=== PATIENT | female | born 2000 | race Caucasian/White ===

== ENCOUNTER 2019-04-09 11:15 | Inpatient (IN) | payer MEDICAID, OTHER ==
[~2019-04-09] VITALS: Ht 157.5 cm; Wt 69.5 kg
[2019-04-09] VITALS (40 sets, daily range): BP systolic 93–155; BP diastolic 57–90
--- NOTE | 2019-04-09 11:05 | NUR ---
KADIE MARK presented to unit via ambulatory from home, accompanied by significant other, for induction of labor. KADIE MARK weighed, gowned, voided, and to bed. EFHM and TOCO applied, VS taken. KADIE MARK oriented to bed controls, call light, TV, heat, and A/C controls.
[2019-04-09] MEDS ORDERED: D5 LR IV SOLUTION 1,000 ML IV ONE (11:28)
[2019-04-09 12:41] LABS: BASOPHILS % (AUTO) 0 % (0-10); EOSINOPHILS # (AUTO) 0.1 10^3/uL (0.0-0.3); EOSINOPHILS % (AUTO) 1 % (0-10); HEMATOCRIT 31 % (35-52); HEMOGLOBIN 9.4 G/DL (11.5-16.0); LYMPHOCYTES # (AUTO) 1.7 X 10^3 (1.0-4.0); LYMPHOCYTES % (AUTO) 12 % (12-44); MEAN CORPUSCULAR HEMOGLOBIN 22 PG (25-34); MEAN CORPUSCULAR HGB CONC 30 G/DL (32-36); MEAN CORPUSCULAR VOLUME 71 FL (80-99); MEAN PLATELET VOLUME 9.4 FL (7.4-10.4); MONOCYTES % (AUTO) 7 % (0-12); NEUTROPHILS # (AUTO) 10.9 X 10^3 (1.8-7.8); NEUTROPHILS % (AUTO) 80 % (42-75); PLATELET COUNT 361 10^3/uL (130-400); WHITE BLOOD COUNT 13.7 10^3/uL (4.3-11.0)
[2019-04-09] MEDS: LACTATED RINGERS 1,000 ML IV SCH ×2 (12:43→16:37)
[2019-04-09] MEDS ORDERED: D5 LR IV SOLUTION 1,000 ML IV SCH (12:54)
[2019-04-09] MEDS ORDERED: SUFENTA 0.6MCG/ML BUPIVA 0.125 100 ML ONE (12:59)
[2019-04-09] MEDS ORDERED: PREN-142 PO (13:23)
[2019-04-09] MEDS ORDERED: LIDOCAINE PF 2% 5 ML (XYLOCAINE) VIAL ONE (13:50)
[2019-04-09] MEDS ORDERED: BUPIVACAINE 0.25% 30 ML (SENSORCAINE) VIAL ONE (13:50)
[2019-04-09] MEDS ORDERED: fentaNYL INJECTION 100 MCG/2 ML AMP ONE (13:50)
[2019-04-09] MEDS ORDERED: FLU QUADRIvalent (5+ YOA) 2019-2020 (AFLURIA) 0.5 ML IM ONE (14:00)
[2019-04-09] MEDS ORDERED: ONDANSETRON 4 MG/2 ML (SDV) Z0FRAN IV PRN (14:30)
[2019-04-09] MEDS ORDERED: NALOXONE 0.4 MG/ML 1 ML (NARCAN) VIAL IV PRN (14:30)
[2019-04-09] MEDS ORDERED: diphenhydrAMINE 50 MG/ML INJ (BENADRYL) IV PRN (14:30)
[2019-04-09] MEDS ORDERED: EPIDURAL (SUFENTA 0.6MCG/ML BUPIVA 0.125%) 100 ML BAG EPI PRN (14:30)
[2019-04-09] MEDS ORDERED: OXYTOCIN/NORMAL SALINE 500 ML IV ONE (14:53)
[2019-04-09] MEDS ORDERED: OXYTOCIN/NORMAL SALINE 500 ML IV SCH ×3 (14:53→20:02)
[2019-04-09] MEDS ORDERED: OXYC1TAB87 PO (15:00)
[2019-04-09] MEDS ORDERED: DOCU-143 PO (15:00)
[2019-04-09] MEDS ORDERED: IBUP-1780 PO (15:00)
--- NOTE | 2019-04-09 15:08 | History & Physical ---
History and Physical Date Seen by Provider: Apr 09, 2019 Time Seen by Provider: 15:06 This patient is a 19-year-old G1 white female with an EDC of 12 [phone] putting her now at 38+ weeks gestation. She was seen in clinic on this date and found to be damion every 5-8 minutes cervical exam was 4 cm 90 percent effaced with a bulging bag. Patient was sent to labor and delivery for management. Her GBS culture after 35 weeks gestation was negative. She denied ruptured membranes or bleeding. She's had no problems with his to date. Allergies are to Omnicef which causes a rash Medications are vitamins Medical social and surgical histories are per the antepartum record HEENT exam is normal Neck is supple no lymphadenopathy no thyromegaly Abdomen is gravid soft nontender nondistended Extremities show no clubbing or cyanosis. There is no Homans sign. Pelvic exam currently is 5 cm dilated almost 100 percent effaced and 0 to -1 station vertex presentation with a bulging bag amniotomy is performed with release of clear fluid monitor shows irregular contractions with a normal heart rate pattern Laboratory Tests 04/09/19 11:35 White count is mildly elevated at 13.7 thousand Assessment and plan term 38+ weeks' gestation in a patient well was spontaneous labor. Epidural has been placed patient will be allowed to labor. We will augment with Pitocin and anticipate a vaginal delivery. 38+ week gestation with spontaneous labor Allergies and Home Medications Allergies Coded Allergies: cefdinir (Verified Allergy, Mild, 04/09/19) Home Medications Docusate Sodium 100 Mg Capsule, 100 MG PO BID Prescribed by: LAUREN FROST on 04/09/19 1500 Ibuprofen 800 Mg Tablet, 800 MG PO Q6H PRN for PAIN Prescribed by: LAUREN FROST on 04/09/19 1500 Oxycodone HCl/Acetaminophen 1 Each Tablet, 1 TAB PO Q4H Prescribed by: LAUREN FROST on 04/09/19 1500 Patient Home Medication List Home Medication List Reviewed: Yes Clinical Quality Measures DVT/VTE Risk/Contraindication: Risk Factor Score Per Nursin RFS Level Per Nursing on Admit: 1=Low/No VTE PPX LAUREN LOZOYA MD Apr 09, 2019 15:08 POS
--- NOTE | 2019-04-09 16:06 | NUR ---
Dr Campos notified per text of pt's unchanged exam.
[2019-04-09] MEDS ORDERED: LIDOCAINE/EPI 2% 1:200,00 (XYLOCAINE) 10 ML VIAL ONE (18:21)
[2019-04-09] MEDS ORDERED: MINERAL OIL CONCENTRATE 99.9% 15 ML UDC ONE (18:54)
[2019-04-09] MEDS ORDERED: TETANUS,DIPTH,PERTUSS P/F (BOOSTRIX) 0.5 ML VIAL IM ONE (20:15)
[2019-04-09] MEDS ORDERED: oxyCODONE/APAP 5/325MG (PERCOCET 5) TABLET PO PRN (20:15)
[2019-04-09] MEDS ORDERED: BENZOCAINE/MENTHOL (DERMOPLAST) 56 ML CAN TP PRN (20:15)
[2019-04-09] MEDS ORDERED: MEASLES,MUMPS,RUBELLA 1 EA INJ SC ONE (20:15)
[2019-04-09] MEDS ORDERED: ONDANSETRON 4 MG/2 ML (SDV) Z0FRAN IVP PRN (20:15)
[2019-04-09] MEDS: KETOROLAC 30 MG/ML VIAL IVP SCH (20:28)
--- NOTE | 2019-04-09 22:00 | NUR ---
Report given to Bernie mac
--- NOTE | 2019-04-10 | OPERATIVE REPORT ---
DATE OF SERVICE: 04/09/2019 The patient delivered by term spontaneous vaginal delivery a viable male with Apgars of 8 and 9 at 1 and 5 minutes respectively, weight is 7 pounds 15 ounces. time of 1923 and a cord blood pH that is pending. The infant was delivered over a midline episiotomy with slight extension in the posterior vaginal wall under epidural augmented with local anesthetic in the perineum. The was bulb suctioned on delivery of the head and again on completion of delivery. The umbilical cord was doubly clamped when it was becoming pulseless. The father cut the cord, the baby was passed to mom's abdomen. The placenta delivered spontaneously [place]. It was normal with a 3-vessel cord. The cervix, vagina, rectum, and perineum were examined and found intact, except for the midline episiotomy with some shredding of the hymenal ring and the immediate subcuticular tissue from the tearing that was beginning to occur just prior to the episiotomy. The rectum was intact. The episiotomy in the posterior vaginal wall extension was repaired with a single suture of 3-0 Vicryl Rapide in the usual manner without difficulty. Good hemostasis and good reapproximation. Sponge and needle counts were correct on completion of the delivery and the repair. Estimated blood loss was around 300 mL. The patient tolerated the delivery and the repair well and remained in the LDR. The baby remained with the mom. Job ID: [id number] DocumentID: [id number] Dictated Date: 04/09/2019 19:59:03 Steamfitter Apprentice Date: 04/09/2019 23:58:58 Dictated By: LAUREN LOZOYA MD
[2019-04-10 00:30] VITALS: BP 96/63
[2019-04-10] MEDS: DOCUSATE SODIUM 100 MG (COLACE) CAP PO SCH ×3 (02:43→16:42)
[2019-04-10] MEDS: CATHETER FLUSH 10 ML SYR IV SCH ×2 (02:44→02:49)
[2019-04-10] MEDS: KETOROLAC 30 MG/ML VIAL IVP SCH (02:48)
[2019-04-10 04:55] VITALS: BP 100/67
--- NOTE | 2019-04-10 07:50 | NUR ---
DR. LOZOYA HERE TO SEE PT.
--- NOTE | 2019-04-10 07:56 | Progress Note ---
Standard Progress Note Progress Notes/Assess & Plan Date Seen by a Provider: Apr 10, 2019 Time Seen by a Provider: 07:55 Progress/Assessment & Plan This patient is without complaint. She is ambulating, voiding, tolerating oral intake well has good pain control. Patient denies chest pain, denies nausea vomiting, denies headache, and denies shortness of breath. Vital Signs 04/10/19 04/10/19 04:55 06:45 Temp 37.7 Pulse 90 Resp 20 B/P (MAP) 100/67 (78) Pulse Ox 98 O2 Delivery Room Air Vital signs are stable. Patient is afebrile. The abdomen is benign. Fundus is firm below the umbilicus and nontender. Extreme show no clubbing or cyanosis. There is no Homans sign. There is minimal pretibial pitting edema. Assessment and plan day number 1 status post term spontaneous vaginal delivery at 38+ weeks gestation. Patient is doing well and will have routine convalescence care Final Diagnosis 38 week spontaneous vaginal delivery LAUREN LOZOYA MD Apr 10, 2019 07:56 POS
[2019-04-10 08:00] VITALS: BP 112/58
--- NOTE | 2019-04-10 08:00 | NUR ---
A.M. ASSESSMENT COMPLETED. VSS. PT DECLINED THE FLU AND TDAP VACCINES. STATES CAN'T SEALLOW PILLS AND NEEDS THEM CRUSHED. CARING FOR IN ROOM. ICE PACK GIVEN FOR PERINEUM.
--- NOTE | 2019-04-10 08:30 | NUR ---
SET UP SHOWER. PT GIVEN TUCKS AND NUPERCAINAL OINTMENT FOR EPIS. MENU GIVEN. EXPLAINED STORK MEAL PROCEDURE AND DIETARY PROCEDURE.
[2019-04-10] MEDS ORDERED: IBUPROFEN 800 MG (MOTRIN) TAB PO ONE ×2 (08:33→16:08)
[2019-04-10] MEDS: WITCH HAZEL(TUCKS) 40 EA JAR TOP PRN (08:39)
[2019-04-10] MEDS: DIBUCAINE (NUPERCAINAL) 1% OINT 30 GM TOP PRN (08:39)
[2019-04-10] MEDS: IBUPROFEN 800 MG (MOTRIN) TAB PO SCH ×3 (08:40→22:12)
--- NOTE | 2019-04-10 10:30 | NUR ---
DOING WELL. VISITORS AT BEDSIDE. CONTINUES TO CARE FOR IN ROOM.
[2019-04-10 12:00] VITALS: BP 107/56
--- NOTE | 2019-04-10 12:00 | NUR ---
VSS. OFFERS NO COMPLAINTS. CONTINUES TO CARE FOR IN ROOM.
--- NOTE | 2019-04-10 15:00 | NUR ---
PT SLEEPING. PT'S MOM HOLDING INFANT.
--- NOTE | 2019-04-10 15:03 | Anesthesia-Regional Post-Op ---
Regional Patient Condition Mental Status: Alert, Oriented x3 Circulation: Same as Pre-Op Headache: Absent Sensation: Full Recovery Motor Block: Absent Post Op Complications Complications None Follow Up Care/Instructions Patient Instructions None needed. Anesthesia/Patient Condition Patient is doing well, no complaints, stable vital signs, no apparent adverse anesthesia problems. ROB WALLS DO Apr 10, 2019 15:03 POS
--- NOTE | 2019-04-10 16:15 | NUR ---
VSS. NO CHANGE IN STATUS. REMAINS IN ROOM WITH MOM AND GRANDMOTHER.
[2019-04-10 16:30] VITALS: BP 108/69
--- NOTE | 2019-04-10 18:00 | NUR ---
CONTINUES TO CARE FOR IN ROOM. STATES WELL.
--- NOTE | 2019-04-10 19:50 | NUR ---
RAYMUNDO Tag alarming, rn to room, mob holding infant, RN educated parents not to tamper with tag, as system alarms in background, fob holding tag in hand after he cut band off stating "Its too tight." RN takes tag, disarms system, returns to room with another tag to replace security system, fob refusing tag, asks "Do we have to have it?" RN states yes as it prevents infant from going near door ways or elevators that are open, fob states "Show me the paperwork stating I have to have it. Ill watch him." Anand present. This rn states that tag can be applied looser but we have paperwork we will need brought up and signed showing they refuse the security system in place, shermanb voices understanding.
--- NOTE | 2019-04-10 19:52 | NUR ---
This rn contacted [facility] Director regarding huggs tag refusal, moises verified huggs tag can be refused and she will contact warehouse worker 2nd shift for paperwork.
--- NOTE | 2019-04-10 20:29 | NUR ---
This RN and Anand rn to room, mob signed paperwork refusing security system, paperwork witnessed/signed by both staff members present. This RN reviewed poc with mob that pain medications and vitals are due at 2200 but to call if she needs anything. Understanding voiced per MOB.
[2019-04-10 22:18] VITALS: BP 113/66
--- NOTE | 2019-04-10 22:21 | NUR ---
vss, Med crushed and put in applesauce for pt. Denies further needs, fob pacing room holding at this time.
[2019-04-11 04:20] VITALS: BP 99/62
--- NOTE | 2019-04-11 07:28 | NUR ---
Dr Campos to see patient and orders for discharge received.
--- NOTE | 2019-04-11 07:35 | Progress Note ---
Standard Progress Note Progress Notes/Assess & Plan Date Seen by a Provider: Apr 11, 2019 Time Seen by a Provider: 07:33 Progress/Assessment & Plan This patient is without complaint. She is ambulating, voiding, tolerating oral intake well has good pain control. Patient denies chest pain, denies nausea vomiting, denies headache, and denies shortness of breath. Vital Signs 04/10/19 04/10/19 04:55 06:45 Temp 37.7 Pulse 90 Resp 20 B/P (MAP) 100/67 (78) Pulse Ox 98 O2 Delivery Room Air Vital signs are stable. Patient is afebrile. The abdomen is benign. Fundus is firm below the umbilicus and nontender. Extreme show no clubbing or cyanosis. There is no Homans sign. There is minimal pretibial pitting edema. Assessment and plan day number 1 status post term spontaneous vaginal delivery at 38+ weeks gestation. Patient is doing well and will have routine convalescence care April 11, 2019 This patient is without complaint. She is ambulating, voiding, tolerating oral intake well and requesting discharge home. Vital Signs Date Time Temp Pulse Resp B/P (MAP) Pulse Ox O2 Delivery O2 Flow Rate FiO2 04/11/19 04:20 36.6 78 18 99/62 (74) 98 Room Air 04/10/19 22:18 37.0 105 18 113/66 (82) 97 Room Air 04/10/19 16:30 36.9 106 18 108/69 (82) 97 Room Air 04/10/19 12:00 37.2 96 18 107/56 (73) 97 Room Air 04/10/19 08:00 36.9 92 18 112/58 (76) 98 Room Air Vital signs are stable. Patient is afebrile. Fundus is firm below the umbilicus and nontender. Extremities show no clubbing cyanosis. There is no Homans sign. Assessment and plan day number 2 status post term spontaneous vaginal delivery at 38+ weeks gestation doing well. Plan is for discharge home with follow-up in clinic Final Diagnosis 38 week spontaneous vaginal delivery LAUREN LOZOYA MD Apr 11, 2019 07:35 POS
--- NOTE | 2019-04-11 07:45 | NUR ---
Rn to bedside. pt holding . plan of care reviewed with pt. pt declines motrin at this time and rn informed pt that she may have the motrin anytime she wants it she just needs to let rn know
[2019-04-11 07:46] VITALS: BP 115/60
--- NOTE | 2019-04-11 08:45 | NUR ---
Discharge instructions explained, signed and copy to patient. pt verbalized understanding of instructions and denied questions. mother present at bedside along with s.o. during discharge instructions. prescription for percocet given to pt. pt request that other prescriptions be called to [facility]
--- NOTE | 2019-04-11 09:35 | NUR ---
RN to pt's room per regulatory services consultant request. Lidia Vinson reports she was to pt bedside and pt appeared almost tearful, leg shaking and pt stating not feeling well. vs obtained per lidia vinson rn and noted elevated pulse. pt sitting in chair reports "pain" states "i think I should have taken the motrin earlier because I am hurting now." pulse taken manually by this rn and noted 115-120. discussed with pt will get motrin and for pt to report to rn when she is feeling better or if she continues to feel bad or has pain. pt verbalized understanding. pt's mother at bedside along with s.o. pt does report hx of anxiety. pt denies further symptoms other than pain at this time.
[2019-04-11] MEDS: IBUPROFEN 800 MG (MOTRIN) TAB PO SCH (09:40)
[2019-04-11] MEDS: DOCUSATE SODIUM 100 MG (COLACE) CAP PO SCH (09:40)
[2019-04-11] MEDS: WITCH HAZEL(TUCKS) 40 EA JAR TOP PRN (09:40)
--- NOTE | 2019-04-11 09:45 | NUR ---
ice pack given to pt per pt request to place on perineum
--- NOTE | 2019-04-11 11:10 | NUR ---
Rn called to pt room and pt reports pain is better rates 0:10 and requests discharge. diapers and wipes given to s.o. to change diaper.
[2019-04-11 11:15] VITALS: BP 111/68
[2019-04-11] MEDS: DIBUCAINE (NUPERCAINAL) 1% OINT 30 GM TOP PRN (11:24)
--- NOTE | 2019-04-11 11:35 | NUR ---
Discharged to home. Downstairs in wheelchair per ws staff and to private vehicle with belongings in hand.
== END 2019-04-11 11:35 | disposition home or self-care (01) | DRG 807 ==
LOC: LDRP 11:15
PROVIDERS: ADMIT Obstetrics & Gynecology; ATTEND Obstetrics & Gynecology
PROC: 10E0XZZ Delivery of Products of Conception, External Approach (ICD-10-PCS; principal; 2019-04-09)
PROC: 0W8NXZZ Division of Female Perineum, External Approach (ICD-10-PCS; 2019-04-09)
PROC: 0UQGXZZ Repair Vagina, External Approach (ICD-10-PCS; 2019-04-09)
DX: O71.4 Obstetric high vaginal laceration alone (principal); Z3A.38 38 weeks gestation of pregnancy; Z37.0 Single live birth
CPT/HCPCS: 36415; 85025; 86850; 86900; 86901

== ENCOUNTER 2020-04-13 06:45 | Outpatient (CLI) | payer MEDICAID ==
[2020-04-13] VITALS (7 sets, daily range): BP systolic 106–119; BP diastolic 56–69
[~2020-04-13] VITALS: Ht 157.5 cm; Wt 70.0 kg
[~2020-04-13 06:45] MED LIST: DOCU-143 PO; IBUP-1780 PO; OXYC1TAB87 PO; PREN-142 PO
--- NOTE | 2020-04-13 06:54 | NUR ---
KADIE MARK presented to unit via ambulation from ED, with c/o BACK PAIN. KADIE MARK weighed, gowned, voided, and to bed. EFHM and TOCO applied, VS taken. KADIE MARK oriented to bed controls, call light, TV, heat, and A/C controls.
[2020-04-13 07:24] LABS: BILIRUBIN,URINE NEGATIVE (NEGATIVE); CLARITY,URINE CLEAR; COLOR,URINE YELLOW; GLUCOSE, URINE (UA) NEGATIVE (NEGATIVE); KETONES,URINE NEGATIVE (NEGATIVE); LEUKOCYTE ESTERASE ,URINE NEGATIVE (NEGATIVE); NITRITE,URINE NEGATIVE (NEGATIVE); PH,URINE 5.5 (5-9); PROTEIN,URINE NEGATIVE (NEGATIVE)
--- NOTE | 2020-04-13 07:30 | NUR ---
Pt reports lifting her younger child (approx. 25lbs) and pulling her back a few days ago. Pain has gotten progressively worse which bought her to OB today. Pt reports taking Tylenol 2 hours ago, child's dose due to her being unable to swallow pills. Pt denies lower back pain, pain with urination, contractions, leaking of fluid or vaginal bleeding, pt denies recent intercourse. Pt also reports trying ice and heat at home and requests something stronger for pain relief.
[2020-04-13 07:35] LABS: BACTERIA,URINE FEW /HPF
--- NOTE | 2020-04-13 08:25 | NUR ---
Dr Campos called, update given new orders received. Plan of care reviewed with pt, no questions or concerns noted.
[2020-04-13] MEDS ORDERED: D5 LR IV SOLUTION 1,000 ML IV ONE (08:30)
[2020-04-13] MEDS ORDERED: KETOROLAC 30 MG/ML VIAL IVP ONE (08:30)
[2020-04-13 09:12] LABS: BILIRUBIN,URINE NEGATIVE (NEGATIVE); CLARITY,URINE CLEAR; COLOR,URINE YELLOW; GLUCOSE, URINE (UA) NEGATIVE (NEGATIVE); KETONES,URINE NEGATIVE (NEGATIVE); LEUKOCYTE ESTERASE ,URINE NEGATIVE (NEGATIVE); NITRITE,URINE NEGATIVE (NEGATIVE); PROTEIN,URINE TRACE (NEGATIVE)
[2020-04-13 09:18] LABS: BACTERIA,URINE TRACE /HPF; RBC,URINE 0-2 /HPF; SQUAMOUS EPITHELIAL CELL,UR 0-2 /HPF; WBC,URINE 0-2 /HPF
--- NOTE | 2020-04-13 10:00 | NUR ---
called with update, new order received.
--- NOTE | 2020-04-13 10:10 | NUR ---
KADIE MARK demonstrates understanding of discharge instructions and accurately returns instructions upon questioning. Copy of Post-Discharge Instructions given to pt. KADIE MARK is able to manage continuing needs after discharge. Patients belongings returned to . Patient discharged from 331- on 04/13/20 at 1010. KADIE MARK left floor via , to follow up as scheduled.
--- NOTE | 2020-04-14 11:07 | Physician Query-Final Dx ---
UTE ARAUZ 04/14/20 1107: Clinic Account Progress/Dx Physician Query: Please give diagnosis Please include # weeks gestation Date of Service Apr 13, 2020 at 06:45 LAUREN LOZOYA MD 04/14/20 1236: Clinic Account Progress/Dx DIAGNOSIS: Diagnosis 27 weeks gestation with false labor UTE ARAUZ Apr 14, 2020 11:07 LAUREN LOZOYA MD Apr 14, 2020 12:36
== END 2020-04-13 10:10 | disposition home or self-care (01) ==
LOC: WSo 06:45 → LDRP 06:45 → WSo 10:10
PROVIDERS: ATTEND Obstetrics & Gynecology
DX: O47.02 False labor before 37 completed weeks of gestation, second trimester (principal); Z3A.27 27 weeks gestation of pregnancy
CPT/HCPCS: 81000; 87088; 96361; 96374; G0463; 99213

== ENCOUNTER 2020-06-11 12:00 | Inpatient (IN) | payer MEDICAID ==
[~2020-06-11] VITALS: Ht 160 cm; Wt 77.5 kg
--- NOTE | 2020-06-11 11:55 | NUR ---
Arrived to unit ambulates self. sent from office due to advanced dilation/possible labor. wt obtained and to room 319. Gowned and to bed. Oriented to room, call light and surroundings. plan of care reviewed with pt.
[2020-06-11 12:16] VITALS: BP 121/75
[2020-06-11 12:58] LABS: BASOPHILS % (AUTO) 0 % (0-10); EOSINOPHILS # (AUTO) 0.1 10^3/uL (0.0-0.3); EOSINOPHILS % (AUTO) 1 % (0-10); HEMATOCRIT 28 % (35-52); HEMOGLOBIN 8.3 g/dL (11.5-16.0); LYMPHOCYTES # (AUTO) 1.6 10^3/uL (1.0-4.0); LYMPHOCYTES % (AUTO) 15 % (12-44); MEAN CORPUSCULAR HEMOGLOBIN 21 pg (25-34); MEAN CORPUSCULAR HGB CONC 30 g/dL (32-36); MEAN CORPUSCULAR VOLUME 69 fL (80-99); MEAN PLATELET VOLUME 9.4 fL (9.0-12.2); MONOCYTES # (AUTO) 0.7 10^3/uL (0.0-1.0); MONOCYTES % (AUTO) 7 % (0-12); NEUTROPHILS # (AUTO) 8.4 10^3/uL (1.8-7.8); NEUTROPHILS % (AUTO) 77 % (42-75); PLATELET COUNT 314 10^3/uL (130-400)
[2020-06-11] MEDS: D5 LR IV SOLUTION 1,000 ML IV SCH ×2 (13:00→19:10)
--- NOTE | 2020-06-11 13:12 | NUR ---
Dr Campos notified of uterine irritability and 1 ctx noted, sve. New orders received. plan of care reviewed with pt .
[2020-06-11] MEDS ORDERED: BETAMETHASONE ACE/NA PHOS 6 MG/ML (CELESTONE SOLUSPAN) ONE (13:43)
[2020-06-11] MEDS ORDERED: ACETAMINOPHEN 500 MG TAB (TYLENOL) ONE (13:47)
[2020-06-11] MEDS ORDERED: ACETAMINOPHEN 500 MG TAB (TYLENOL) PO ONE (14:00)
[2020-06-11] MEDS ORDERED: BETAMETHASONE ACE/NA PHOS 6 MG/ML (CELESTONE SOLUSPAN) IM SCH (14:00)
[2020-06-11 14:40] VITALS: BP 112/61
--- NOTE | 2020-06-11 15:30 | NUR ---
Dr Campos to unit and to see patient. plan of care reviewed with pt. new orders received.
--- NOTE | 2020-06-11 15:48 | History & Physical ---
History and Physical Date Seen by Provider: Jun 11, 2020 Time Seen by Provider: 15:42 This patient is a 20-year-old 2 para 1 white female currently at 35-6/7 weeks gestation. She was seen in my clinic on this date and found to have an ADARSH of over 300, macrosomia with estimated weight above the 99th percentile, complaint of significant increase in pressure and discomfort in the pelvis. She has a history of previous delivery at 37 weeks gestation which was a 7 pound 15 ounce baby at that time. Ultrasound today showed over 9 pound fetus. Patient denies rupture membranes or bleeding. Her GBS culture accomplished at 35 weeks gestation was negative. Allergies are to cephalosporins Medications are vitamins and iron Medical social and surgical history is all per the antepartum record Lab work is as follows Laboratory Tests Test 06/11/20 12:30 06/11/20 12:45 Range/Units White Blood Count 11.0 4.3-11.0 10^3/uL Red Blood Count 4.05 3.80-5.11 10^6/uL Hemoglobin 8.3 L 11.5-16.0 g/dL Hematocrit 28 L 35-52 % Mean Corpuscular Volume 69 L 80-99 fL Mean Corpuscular Hemoglobin 21 L 25-34 pg Mean Corpuscular Hemoglobin Concent 30 L 32-36 g/dL Red Cell Distribution Width 17.8 H 10.0-14.5 % Platelet Count 314 130-400 10^3/uL Mean Platelet Volume 9.4 9.0-12.2 fL Immature Granulocyte % (Auto) 1 % Neutrophils (%) (Auto) 77 H 42-75 % Lymphocytes (%) (Auto) 15 12-44 % Monocytes (%) (Auto) 7 0-12 % Eosinophils (%) (Auto) 1 0-10 % Basophils (%) (Auto) 0 0-10 % Neutrophils # (Auto) 8.4 H 1.8-7.8 10^3/uL Lymphocytes # (Auto) 1.6 1.0-4.0 10^3/uL Monocytes # (Auto) 0.7 0.0-1.0 10^3/uL Eosinophils # (Auto) 0.1 0.0-0.3 10^3/uL Basophils # (Auto) 0.0 0.0-0.1 10^3/uL Immature Granulocyte # (Auto) 0.1 0.0-0.1 10^3/uL PHYSICAL EXAMINATION: VITAL SIGNS: Reviewed. GENERAL: Nontoxic. Well developed and well nourished. Appears well hydrated. No respiratory distress. HEAD: No signs of head trauma. EYES: Pupils are equal. Extraocular motions intact. EARS: Hearing grossly intact, external ears normal. MOUTH: Oropharynx normal. NECK: Supple, nontender, no masses. Full range of motion without pain. No meningismus. CHEST: Chest nontender to palpation, with clear breath sounds bilaterally and no wheezes, rales, or rhonchi. CARDIOVASCULAR: Regular rate and rhythm without murmurs or extra heart sounds. ABDOMEN: Gravid but otherwise soft without detectable tenderness or masses. No signs of distention. No rebound or guarding. Bowel Sounds normal MUSCULOSKELETAL: Normal Range of motion. No deformity. NEUROLOGIC EXAM: Alert. No focal sensory or strength deficits. Age appropriate, active, moving all extremities well. SKIN: No rash or lesions. Palpation normal. No petechiae. Pelvic exam shows a cervix 5 to 6 cm dilated 70% effaced with intact membranes and the presenting part ballotable Assessment and plan 35-6/7 weeks gestation with relatively advanced cervical dilation and with a large for gestational age fetus and with polyhydramnios and with occasional contractions. Patient has been admitted we will observe for progress in cervical dilation or other signs symptoms indications of labor. She has received 1 dose of betamethasone 12 mg IM and she will receive the second dose after 24 hours. If patient makes cervical change we would not plan tocolyse is but will allow for delivery. If patient makes absolutely no change and is stable after receiving her second dose of betamethasone then consideration for outpatient management would be entertained. Patient has been taking supplemental iron and we will continue that as she is still anemic labor/polyhydramnios/macrosomia Allergies and Home Medications Allergies Coded Allergies: cefdinir (Verified Allergy, Mild, 04/09/19) Patient Home Medication List Home Medication List Reviewed: Yes LAUREN LOZOYA MD Jun 11, 2020 15:48
--- NOTE | 2020-06-11 16:00 | NUR ---
pt transferred to room 301 for more comfortable bed per request. Oriented to room, call light and surroundings. pt ambulated to room accompanied by rn. belongings with pt.
[2020-06-11] MEDS: CATHETER FLUSH 10 ML SYR IV SCH (16:54)
[2020-06-11 22:11] VITALS: BP 102/53
[2020-06-12] VITALS (46 sets, daily range): BP systolic 96–131; BP diastolic 48–80
[2020-06-12] MEDS: CATHETER FLUSH 10 ML SYR IV SCH (00:27)
[2020-06-12] MEDS: D5 LR IV SOLUTION 1,000 ML IV SCH (08:24)
[2020-06-12] MEDS ORDERED: BETAMETHASONE ACE/NA PHOS 6 MG/ML (CELESTONE SOLUSPAN) IM SCH (09:00)
--- NOTE | 2020-06-12 09:06 | Diagnostic Imaging Report ---
US BIOPHYSICAL PROFILE [id number] Technique: Transabdominal sonographic imaging of the gravid uterus was performed for the purposes of biophysical profile. Indication: Polyhydramnios and macrosomia Comparison: None available. Findings: Fetus is in cephalic presentation. Placenta is posteriorly positioned and there is no previa. heart rate is 122 bpm. The amount of amniotic fluid is elevated at 26.1 cm. The biophysical profile, fetus scored 0 points for breathing movements, movements and tone. A score of 2 was given for quality of amniotic fluid volume. Questionable dilatation of the atria of the heart. IMPRESSION: 1. Abnormal biophysical profile with a score of 2/8. 2. Polyhydramnios with an ADARSH of 26 cm. 3. Questionable enlarged cardiac atria. Dictated by: Dictated on workstation # [id number]
[2020-06-12] MEDS: FERROUS SULF 325 MG (IRON) TAB PO SCH (09:07)
--- NOTE | 2020-06-12 10:10 | NUR ---
Dr Campos here to see pt. BEHZADE as charted in labor flow. Discussed POC with pt.
--- NOTE | 2020-06-12 10:15 | NUR ---
Pt ambulated to labor area to room 317. IV intact and infusing without difficulty.
--- NOTE | 2020-06-12 10:24 | Progress Note ---
Standard Progress Note Progress Notes/Assess & Plan Date Seen by a Provider: Jun 12, 2020 Time Seen by a Provider: 10:22 Progress/Assessment & Plan This patient is without complaint. She denies rupture membranes or bleeding. She does report feeling baby moving periodically. Biophysical profile was performed this morning and had a value of 2 for amniotic fluid only. NST is ongoing and does appear to be a category 1 tracing. Cervical exam shows a cervix over 6 cm dilated almost 200% effaced 0 station with vertex presentation with palpable membranes. Patient is being moved to labor and delivery with anticipation for vaginal delivery Vital Signs Date Time Temp Pulse Resp B/P (MAP) Pulse Ox O2 Delivery O2 Flow Rate FiO2 06/12/20 05:33 36.1 97 18 96/51 (66) Room Air 06/11/20 22:11 36.0 93 18 102/53 (69) Room Air 06/11/20 14:40 37.0 90 18 112/61 (78) Room Air 06/11/20 12:16 37.0 127 18 96 Room Air Vital signs are stable. Patient is afebrile. The abdomen is gravid soft nontender nondistended Pelvic exam shows a cervix as noted above Assessment and plan 36 weeks gestation with polyhydramnios a concerning biophysical profile and advanced cervical dilation consistent with labor. Plan is for amniotomy and to allow delivery. GBS culture was negative and patient has had 1 dose of betamethasone yesterday afternoon LAUREN LOZOYA MD Jun 12, 2020 10:24
[2020-06-12] MEDS ORDERED: OXYTOCIN PRE-MIX DRIP 500 ML IV SCH ×4 (10:30→18:00)
--- NOTE | 2020-06-12 10:45 | NUR ---
Report from Lauren Farrell RN
[2020-06-12 10:53] LABS: BASOPHILS % (AUTO) 0 % (0-10); EOSINOPHILS % (AUTO) 0 % (0-10); HEMATOCRIT 33 % (35-52); HEMOGLOBIN 9.5 g/dL (11.5-16.0); LYMPHOCYTES % (AUTO) 13 % (12-44); MEAN CORPUSCULAR HEMOGLOBIN 20 pg (25-34); MEAN CORPUSCULAR HGB CONC 29 g/dL (32-36); MEAN CORPUSCULAR VOLUME 70 fL (80-99); MEAN PLATELET VOLUME 9.1 fL (9.0-12.2); MONOCYTES # (AUTO) 1.1 10^3/uL (0.0-1.0); MONOCYTES % (AUTO) 7 % (0-12); NEUTROPHILS # (AUTO) 12.8 10^3/uL (1.8-7.8); NEUTROPHILS % (AUTO) 79 % (42-75); PLATELET COUNT 342 10^3/uL (130-400); WHITE BLOOD COUNT 16.1 10^3/uL (4.3-11.0)
[2020-06-12] MEDS ORDERED: fentaNYL 2 mcg/ml BUPIVA 0.125 100 ML ONE (11:29)
[2020-06-12] MEDS ORDERED: EPIDURAL (fentaNYL 2 MCG/ML BUPIVA 0.125%)100 ML BAG EPI PRN (13:00)
[2020-06-12] MEDS ORDERED: METOCLOPRAMIDE INJ 10 MG/2 ML (REGLAN) IV PRN (13:00)
[2020-06-12] MEDS ORDERED: NALOXONE 0.4 MG/ML 1 ML (NARCAN) VIAL IV PRN ×2 (13:00)
[2020-06-12] MEDS ORDERED: ONDANSETRON 4 MG/2 ML (SDV) Z0FRAN IV PRN (13:00)
[2020-06-12] MEDS ORDERED: LACTATED RINGERS 1,000 ML IV SCH (13:00)
[2020-06-12] MEDS ORDERED: diphenhydrAMINE 50 MG/ML INJ (BENADRYL) IV PRN (13:00)
[2020-06-12] MEDS ORDERED: LIDOCAINE/EPI 2% 1:200,00 (XYLOCAINE) 10 ML VIAL ONE (16:51)
[2020-06-12] MEDS ORDERED: BENZOCAINE/MENTHOL (DERMOPLAST) 60 ML CAN TP PRN ×2 (17:30→18:00)
[2020-06-12] MEDS ORDERED: ONDANSETRON 4 MG/2 ML (SDV) Z0FRAN IVP PRN ×2 (17:30→18:00)
[2020-06-12] MEDS ORDERED: oxyCODONE/APAP 5/325MG (PERCOCET 5) TABLET PO PRN ×2 (17:30→18:00)
[2020-06-12] MEDS ORDERED: KETOROLAC 30 MG/ML VIAL IVP SCH (17:30)
[2020-06-12] MEDS ORDERED: TETANUS,DIPTH,PERTUSS P/F (BOOSTRIX) 0.5 ML VIAL IM ONE (17:30)
[2020-06-12] MEDS ORDERED: MEASLES,MUMPS,RUBELLA 1 EA INJ SC ONE (17:30)
[2020-06-12] MEDS: KETOROLAC 30 MG/ML VIAL IVP SCH (18:53)
--- NOTE | 2020-06-12 20:10 | OPERATIVE REPORT ---
DATE OF SERVICE: 06/12/2020 DELIVERY NOTE The patient delivered by spontaneous vaginal delivery a viable male infant with Apgars of 8 and 9 at 1 and 5 minutes respectively, weight of 7 pounds 11 ounces, time of 1648 and a cord blood pH that is pending. The delivery was accomplished over a second-degree perineal laceration under epidural analgesia. The was bulb suctioned on delivery of the head and again on completion of delivery. Single nuchal cord was easily released. Umbilical cord when pulseless was doubly clamped. The patient's mother cut the cord, the baby was passed briefly to mom's abdomen. Shortly, the infant was taken to the warmer for evaluation by Dr. Freire, the sash maker in attendance for delivery. Cord bloods were obtained. The placenta delivered fairly promptly spontaneously [place]. It was normal with a 3-vessel cord. It was sent to pathology for permanent section due to the prematurity and history of polyhydramnios. The cervix, vagina, rectum, and perineum were examined and found intact, except for a second-degree perineal laceration that was repaired with a single suture of 3-0 Vicryl Rapide in the usual manner to good hemostasis and good reapproximation. Sponge and needle counts were correct on completion of the delivery and repair. Blood loss was around 200 mL. The patient tolerated the delivery and the repair well and remained in the LDR for recovery. The baby remained in the LDR with the mom. Job ID: [id number] DocumentID: [id number] Dictated Date: 06/12/2020 19:19:20 Division Toll Wire Chief Date: 06/12/2020 20:10:25 Dictated By: LAUREN LOZOYA MD MTDD
--- NOTE | 2020-06-12 20:20 | NUR ---
Pt up to bathroom, small void noted. New gown applied. +pericare, panties and pad applied. Pt to wheelchair and transferred to [facility] in stable condition accompanied by belongings, infant and this rn. Pt oriented to room. Call light within reach.
--- NOTE | 2020-06-12 20:25 | NUR ---
Pt transferred to pp unit via wc per JAYME RN, pt reports having voided prior to transfer, no epidural cath in back at this time, removed prior to this rn. oriented to call system and surroundings, fundal assessment wnl, see int. meds admin, see emar. will cont to monitor.
[2020-06-12] MEDS: DOCUSATE SODIUM 100 MG (COLACE) CAP PO SCH (20:41)
[2020-06-12] MEDS ORDERED: DOCUSATE SODIUM 100 MG (COLACE) CAP PO SCH (21:00)
[2020-06-13] VITALS (8 sets, daily range): BP systolic 83–121; BP diastolic 47–72
[2020-06-13] MEDS: KETOROLAC 30 MG/ML VIAL IVP SCH ×2 (00:24→06:06)
--- NOTE | 2020-06-13 04:28 | NUR ---
From the instances of this rn being in room, pt has not engaged with . Infant remains on back in crib across room while pt remains in bed. SS consult entered r/t above and pt has a history of post depression (as information was received in report)
--- NOTE | 2020-06-13 07:15 | Progress Note ---
Standard Progress Note Progress Notes/Assess & Plan Date Seen by a Provider: Jun 13, 2020 Time Seen by a Provider: 07:14 Progress/Assessment & Plan This patient is without complaint. She denies rupture membranes or bleeding. She does report feeling baby moving periodically. Biophysical profile was performed this morning and had a value of 2 for amniotic fluid only. NST is ongoing and does appear to be a category 1 tracing. Cervical exam shows a cervix over 6 cm dilated almost 200% effaced 0 station with vertex presentation with palpable membranes. Patient is being moved to labor and delivery with anticipation for vaginal delivery Vital Signs Date Time Temp Pulse Resp B/P (MAP) Pulse Ox O2 Delivery O2 Flow Rate FiO2 06/12/20 05:33 36.1 97 18 96/51 (66) Room Air 06/11/20 22:11 36.0 93 18 102/53 (69) Room Air 06/11/20 14:40 37.0 90 18 112/61 (78) Room Air 06/11/20 12:16 37.0 127 18 96 Room Air Vital signs are stable. Patient is afebrile. The abdomen is gravid soft nontender nondistended Pelvic exam shows a cervix as noted above Assessment and plan 36 weeks gestation with polyhydramnios a concerning biophysical profile and advanced cervical dilation consistent with labor. Plan is for amniotomy and to allow delivery. GBS culture was negative and patient has had 1 dose of betamethasone yesterday afternoon Final Diagnosis June 13, 2020 Patient is without complaint. She is ambulating, voiding, tolerating oral intake well and has good pain control. Vital Signs Date Time Temp Pulse Resp B/P (MAP) Pulse Ox O2 Delivery O2 Flow Rate FiO2 06/13/20 04:25 36.8 84 18 100/57 (71) 96 Room Air 06/13/20 00:23 36.8 74 18 83/47 (59) 96 Room Air 06/12/20 21:25 36.3 88 18 115/68 (84) 96 Room Air 06/12/20 14:45 37.3 105 18 126/74 (91) 100 Room Air 06/12/20 14:30 92 18 114/66 (82) 100 Room Air 06/12/20 14:15 93 18 122/66 (84) 99 Room Air 06/12/20 14:00 105 18 121/68 (85) 99 Room Air 06/12/20 13:45 105 18 119/63 (81) 99 Room Air 06/12/20 13:30 97 18 118/63 (81) 99 Room Air 06/12/20 13:15 36.9 100 18 111/57 (75) 99 Room Air 06/12/20 13:00 98 18 111/55 (73) 97 Room Air 06/12/20 12:45 101 18 113/58 (76) 100 Room Air 06/12/20 12:30 100 18 127/60 (82) 100 Room Air 06/12/20 12:23 107 18 131/73 (92) 100 Room Air 06/12/20 12:16 109 18 121/64 (83) 100 Room Air 06/12/20 12:15 108 18 112/58 (76) Room Air 06/12/20 12:06 104 18 118/59 (78) 100 Room Air 06/12/20 12:03 95 18 118/58 (78) 100 Room Air 06/12/20 12:00 100 18 124/66 (85) 98 Room Air 06/12/20 11:56 80 18 101/53 (69) 98 Room Air 06/12/20 11:54 98/48 (65) Room Air 06/12/20 11:52 96 18 113/57 (75) 99 Room Air 06/12/20 11:49 99 18 125/67 (86) 98 Room Air 06/12/20 11:46 103 18 125/69 (87) 98 Room Air 06/12/20 11:43 94 18 128/74 (92) 100 Room Air 06/12/20 11:40 106 18 121/80 (94) 100 Room Air 06/12/20 11:37 113 18 125/76 (92) 100 Room Air 06/12/20 11:30 99 18 117/69 (85) Room Air 06/12/20 10:37 101 18 123/60 (81) 99 Room Air 06/12/20 08:22 36.7 100 18 109/61 (77) 98 Room Air Vital signs are stable. Patient is afebrile. The abdomen is benign. Extremities show no clubbing or cyanosis. There is no Homans' sign. Assessment and plan day #1 status post spontaneous vaginal AB doing well. Plan is for routine convalescent care LAUREN LOZOYA MD Jun 13, 2020 07:15
[2020-06-13] MEDS ORDERED: IBUP-1780 PO (07:16)
[2020-06-13] MEDS ORDERED: OXYC1TAB87 PO (07:16)
[2020-06-13] MEDS ORDERED: FERR325T18 PO (07:16)
[2020-06-13] MEDS ORDERED: DCS100C PO (07:16)
--- NOTE | 2020-06-13 07:17 | Discharge Inst-Surgical ---
Discharge Inst-Surgical Depart Medication/Instructions New, Converted or Re-Newed RX: RX on Chart Consults/Follow Up Patient Instructions: As directed Orders & Referrals Follow Up Appt: Call to make follow up appt. for patient in 4 weeks. Activity Per routine post vaginal delivery instructions. Please call in RX to patient pharmacy. Diet as tolerated Patient may shower or tub bathe as desired. Activity Activity as Tolerated: No Diet Discharge Diet: No Restrictions LAUREN LOZOYA MD Jun 13, 2020 07:17
--- NOTE | 2020-06-13 07:20 | NUR ---
linens for shower brought to room. Pts mother was holding infant while mother was asleep in bed.
--- NOTE | 2020-06-13 08:00 | NUR ---
Fresh blankets for to room. Infant still with grandmother while pt is lying in bed.
--- NOTE | 2020-06-13 08:08 | Anesthesia-Regional Post-Op ---
Regional Patient Condition Mental Status: Alert, Oriented x3 Circulation: Same as Pre-Op Headache: Absent Sensation: Full Recovery Motor Block: Absent Post Op Complications Complications None Follow Up Care/Instructions Patient Instructions None needed. Anesthesia/Patient Condition Patient is doing well, no complaints, stable vital signs, no apparent adverse anesthesia problems. ROB WALLS DO Jun 13, 2020 08:08
[2020-06-13] MEDS: FERROUS SULF 325 MG (IRON) TAB PO SCH (09:02)
[2020-06-13] MEDS: DOCUSATE SODIUM 100 MG (COLACE) CAP PO SCH ×2 (09:02→23:42)
--- NOTE | 2020-06-13 09:10 | NUR ---
Physical shift assessment complete, vitals obtained, scheduled meds given. Grandmother hands to mother so that mother can feed infant. Fresh ice water provided. No further needs at this time.
--- NOTE | 2020-06-13 10:30 | NUR ---
DANIEL visited with the patient for social service consult. This sw received a consult regarding a concern of poor bonding. DANIEL visited with the patient. She was lying in bed with her mother at bedside. The patient was pleasant and willing to discuss discharge planning. A child protective service report was not made at this time. DANIEL informed the patient's primary care Nurse. She verbalized understanding. KEIRY/JOANNE informed the primary care nurse, that if she felt there is a concern for her to make a report. Home: The patient lives at home with her [id number] child. The patient reports the father of baby will not be involved with her but will be involved with baby. Resources: The patient states that she is set up with [facility]. Her plan is to breast feed but WIC will assist with formula if switched. DANIEL discussed and provided information on services such as [facility], [employer], [employer], and the [facility]. The patient reports that she is interested in [facility]. DANIEL received verbal permission to make a referral. DANIEL contacted Marilia at the agency and made the referral. Supplies: The patient states that she has a bassinet, car seat, diapers, bottles/clothes, and additional supplies for baby. She denies a current need for supplies. Supports: The patient reports that she feels she has a good support system with her Mother and "other" Grandmother. Mental Health: The patient has a history of Post Depression. She reports she has spoke to Dr. Campos in the past and he recommended medication. The patient did not take the medication and feels that she does not need it. She denies having the same symptoms as she did after her first . She reports with her first child she felt disconnected. She states that at this time she feels connected with the baby. The patient denies using a mental health service. She is a patient of [facility]. This sw explained that [facility] has Mental Health services and counseling available. The patient reports at this time she is not interested. Bonding: The baby boy was not present in the room; therefore, this sw did not get to see the patient and baby boding. The nurse reports that the patient's mother has been holding the baby a lot and do not see the patient interacting much. The patient has a support system and has allowed this sw to make a referral for [facility]. The patient denies feeling disconnected with the baby at this time. A DCF report was not made. CM/SS notified the primary care nurse. No further needs at this time.
[2020-06-13] MEDS ORDERED: IBUPROFEN 800 MG (MOTRIN) TAB PO ONE (12:08)
[2020-06-13] MEDS: IBUPROFEN 800 MG (MOTRIN) TAB PO SCH ×3 (12:16→23:42)
--- NOTE | 2020-06-13 12:35 | NUR ---
Vitals obtained and scheduled meds given. Pt sitting up in bed, grandmother holding infant. No further needs at this time.
[2020-06-13] MEDS ORDERED: IBUPROFEN 800 MG (MOTRIN) TAB PO SCH (17:30)
--- NOTE | 2020-06-13 18:00 | NUR ---
Vitals obtained and scheduled meds given. Pt feeding . No further needs at this time.
[2020-06-14 05:49] VITALS: BP 108/59
[2020-06-14] MEDS: IBUPROFEN 800 MG (MOTRIN) TAB PO SCH ×4 (05:50→23:45)
--- NOTE | 2020-06-14 10:20 | Progress Note ---
Standard Progress Note Progress Notes/Assess & Plan Date Seen by a Provider: Jun 14, 2020 Time Seen by a Provider: 10:19 Progress/Assessment & Plan This patient is without complaint. She denies rupture membranes or bleeding. She does report feeling baby moving periodically. Biophysical profile was performed this morning and had a value of 2 for amniotic fluid only. NST is ongoing and does appear to be a category 1 tracing. Cervical exam shows a cervix over 6 cm dilated almost 200% effaced 0 station with vertex presentation with palpable membranes. Patient is being moved to labor and delivery with anticipation for vaginal delivery Vital Signs Date Time Temp Pulse Resp B/P (MAP) Pulse Ox O2 Delivery O2 Flow Rate FiO2 06/12/20 05:33 36.1 97 18 96/51 (66) Room Air 06/11/20 22:11 36.0 93 18 102/53 (69) Room Air 06/11/20 14:40 37.0 90 18 112/61 (78) Room Air 06/11/20 12:16 37.0 127 18 96 Room Air Vital signs are stable. Patient is afebrile. The abdomen is gravid soft nontender nondistended Pelvic exam shows a cervix as noted above Assessment and plan 36 weeks gestation with polyhydramnios a concerning biophysical profile and advanced cervical dilation consistent with labor. Plan is for amniotomy and to allow delivery. GBS culture was negative and patient has had 1 dose of betamethasone yesterday afternoon June 14, 2020 See discharge summary Final Diagnosis 36-week vaginal delivery LAUREN LOZOYA MD Jun 14, 2020 10:20
--- NOTE | 2020-06-14 10:23 | Discharge Summary ---
Discharge Summary 36-week vaginal delivery This patient is a 20-year-old 2 para 1 at the time of admission white female who was admitted from clinic at 35 weeks and 6 days due to labor, polyhydramnios, and LGA infant. On the day of admission she was observed and given a dose of betamethasone. On hospital day #2 a biophysical profile had a value of 2 out of 8. Patient cervix had dilated from 5 cm on admission to 6 or 7 cm and patient was having regular contractions. Amniotomy was performed and patient subsequently had spontaneous vaginal delivery. On postoperative day #1 the patient was ambulating, voiding, tolerating oral intake well and had good pain control. She was stable through the day. Now on day #2 patient again is ambulating, voiding, tolerating oral intake well and has good pain control. Vital Signs Date Time Temp Pulse Resp B/P (MAP) Pulse Ox O2 Delivery O2 Flow Rate FiO2 06/14/20 05:49 36.6 75 18 108/59 (75) 97 Room Air 06/13/20 23:42 36.8 83 18 105/55 (72) 97 Room Air 06/13/20 18:02 36.5 87 18 111/69 (83) 96 Room Air 06/13/20 12:39 36.7 97 16 117/59 (78) 98 Room Air Her vital signs are stable she is afebrile. She is requesting discharge home. Is determined that she can be discharged home. Principal diagnosis this hospitalization is 36-week spontaneous vaginal delivery Secondary diagnoses are labor, polyhydramnios Operation procedures include monitoring, IV fluids, IM steroids, epidural analgesia, Pitocin augmentation of labor, contains vaginal therapy Patient was given appropriate discharge instructions verbally and in writing and a copy was placed in the chart. Discharge medications are Percocet Motrin and Colace patient is continue her home vitamins. LAUREN LOZOYA MD Jun 14, 2020 10:23
[2020-06-14 12:13] VITALS: BP 112/60
[2020-06-14] MEDS: DOCUSATE SODIUM 100 MG (COLACE) CAP PO SCH ×2 (12:15→23:45)
[2020-06-14] MEDS: FERROUS SULF 325 MG (IRON) TAB PO SCH (12:15)
[2020-06-14 18:06] VITALS: BP 109/60
[2020-06-14 23:48] VITALS: BP 107/59
[2020-06-15 06:30] VITALS: BP 99/56
[2020-06-15] MEDS: IBUPROFEN 800 MG (MOTRIN) TAB PO SCH ×2 (06:30→14:40)
[2020-06-15] MEDS: DOCUSATE SODIUM 100 MG (COLACE) CAP PO SCH (10:03)
[2020-06-15] MEDS: FERROUS SULF 325 MG (IRON) TAB PO SCH (10:03)
[2020-06-15 10:08] VITALS: BP 116/66
--- NOTE | 2020-06-15 11:35 | Progress Note ---
Standard Progress Note Progress Notes/Assess & Plan Date Seen by a Provider: Jun 15, 2020 Time Seen by a Provider: 11:33 Progress/Assessment & Plan This patient is without complaint. She denies rupture membranes or bleeding. She does report feeling baby moving periodically. Biophysical profile was performed this morning and had a value of 2 for amniotic fluid only. NST is ongoing and does appear to be a category 1 tracing. Cervical exam shows a cervix over 6 cm dilated almost 200% effaced 0 station with vertex presentation with palpable membranes. Patient is being moved to labor and delivery with anticipation for vaginal delivery Vital Signs Date Time Temp Pulse Resp B/P (MAP) Pulse Ox O2 Delivery O2 Flow Rate FiO2 06/12/20 05:33 36.1 97 18 96/51 (66) Room Air 06/11/20 22:11 36.0 93 18 102/53 (69) Room Air 06/11/20 14:40 37.0 90 18 112/61 (78) Room Air 06/11/20 12:16 37.0 127 18 96 Room Air Vital signs are stable. Patient is afebrile. The abdomen is gravid soft nontender nondistended Pelvic exam shows a cervix as noted above Assessment and plan 36 weeks gestation with polyhydramnios a concerning biophysical profile and advanced cervical dilation consistent with labor. Plan is for amniotomy and to allow delivery. GBS culture was negative and patient has had 1 dose of betamethasone yesterday afternoon June 14, 2020 See discharge summary June 15, 2020 Patient is without complaint. She is ambulating, voiding, tolerating oral intake well has good pain control. Vital signs are stable. Patient is is afebrile. Physical exam is benign Assessment and plan this is day #3 patient is doing well and is to be discharged home LAUREN LOZOYA MD Jun 15, 2020 11:35
--- NOTE | 2020-06-15 14:40 | NUR ---
KADIE MARK demonstrates understanding of discharge instructions and accurately returns instructions upon questioning. Copy of Post-Discharge Instructions given to pt. KADIE MARK is/ able to manage continuing needs after discharge. Patients belongings returned to .
--- NOTE | 2020-06-15 14:45 | NUR ---
Patient discharged from [facility]- on 06/15/20 at 1445. KADIE MARK left floor via [wc], accompanied by , mother and rn. ].
== END 2020-06-15 14:45 | disposition home or self-care (01) | DRG 807 ==
LOC: LDRP 12:00
PROVIDERS: ADMIT Obstetrics & Gynecology; ATTEND Obstetrics & Gynecology
PROC: 10E0XZZ Delivery of Products of Conception, External Approach (ICD-10-PCS; principal; 2020-06-12)
PROC: 0KQM0ZZ Repair Perineum Muscle, Open Approach (ICD-10-PCS; 2020-06-12)
DX: O60.14X0 Preterm labor third trimester with preterm delivery third trimester, not applicable or unspecified (principal); Z37.0 Single live birth; Z3A.35 35 weeks gestation of pregnancy; O40.3XX0 Polyhydramnios, third trimester, not applicable or unspecified; O62.0 Primary inadequate contractions; O70.1 Second degree perineal laceration during delivery; Z20.822 Contact with and (suspected) exposure to COVID-19
CPT/HCPCS: 36415; 76819; 85025; 86780; 86850; 86900; 86901; 87635

== ENCOUNTER → 2022-05-14 | Outpatient (CLI) | payer BC, MEDICAID ==
[~2022-05-14] MED LIST changes: +DOCU-239 PO; +FERR325T18 PO
--- NOTE | 2022-05-14 12:32 | Diagnostic Imaging Report ---
INDICATION: 028.5-abnormal chromosomal/genetic finding on screening of mother. TECHNIQUE: Multiple real-time grayscale images were obtained over the gravid uterus. COMPARISON: None FINDINGS: Single intrauterine is currently in cephalic presentation. Placenta posterior without evidence for previa. Normal amount of amniotic fluid, index just under 12 cm. cardiac activity 139 bpm. anatomical assessment not performed. Biometrical measurements are as follows: Biparietal 7.79 cm, age 31 weeks 2 days. Head circumference 28.56 cm, age 31 weeks 3 days. Abdominal circumference 23.99 cm, age 28 weeks 2 days. Femur length 5.59 cm, age 29 weeks 3 days. Sonographic estimate age: 30 weeks 1 days. Sonographic estimated date of delivery: 07/22/2022. Estimated Weight: 1345 gm (+/- 197 gm). LMP percentile: 37%. heart rate: 139 beats per minute. number: 1 of 1. BIOPHYSICAL PROFILE SCORE: breathin Body movement: 2 tone: 2 Amniotic fluid: 2 Total BPP Score: 8/8 IMPRESSION: 1. Single viable intrauterine , currently in a cephalic presentation. 2. Sonographic estimated age 30 weeks 1 day, with an estimated date of delivery 07/22/2022. 3. Normal biophysical profile score. Dictated by: Dictated on workstation # [id number]
== END ==
LOC: RAD 10:15
PROVIDERS: ATTEND Obstetrics & Gynecology
DX: O28.5 Abnormal chromosomal and genetic finding on antenatal screening of mother (principal); Z3A.30 30 weeks gestation of pregnancy
CPT/HCPCS: 76805; 76819